=== PATIENT | male | born 1950 | race Caucasian/White ===

== ENCOUNTER → 2016-10-03 | Outpatient (CLI) | payer MEDICARE, OTHER ==
[~2016-10-03] MED LIST: REGADENOSON INJ 0.4 MG/5 ML DISP.SYRIN IV ONE
--- NOTE | 2016-10-03 18:47 | DRAGON STRESS TEST REPORT ---
INTRAVENOUS LEXISCAN CARDIOLITE STRESS TEST USING SINGLE PHOTON EMMISION COMPUTERIZED TOMOGRAPHIC. DATE OF PROCEDURE: 10/03/2016 INDICATION : Chest pain CARDIAC RISK FACTORS: Hypertension, dyslipidemia, history of coronary artery disease with stent placement. RESTING EKG: Sinus rhythm with frequent PVC, downsloping ST segment depression with conversion lateral chest lead possible LVH STRESS EKG: No significant changes noted with LexiScan bolus REASON FOR TERMINATION: Protocol. PROCEDURE REPORT: Baseline heart rate 49 beats per minute with blood pressure of 139/93. Patient had no significant complaints. Heart rate at 2 minutes post bolus 76 with a blood pressure of 138/93. 3 minutes post bolus heart rate 79 with blood pressure of 139/90. No significant EKG changes were noted. Patient had no significant complaints during the procedure or postprocedure. CONCLUSIONS: Normal EKG and hemodynamic response to IV LexiScan. NUCLEAR DATA: At rest the patient was given 11.43 millicuries of technetium 99 sestamibi injected intravenously. As per protocol rest gated SPECT images were obtained. Subsequently the patient was given intravenous LexiScan at a dose of 0.4 mg in 5 mL intravenously, followed by flush with normal saline. Subsequently the stress dose of 33.9 millicuries of technetium 99 sestamibi was injected intravenously. As per protocol stress gated images were obtained. NUCLEAR INTERPRETATION: Both raw and processed data were used for interpretation. Visual, qualitative, computer-generated quantitative data was used. There was good myocardial uptake of technetium compound. Motion artifact and soft tissue attenuations were noted. Increased visceral uptake was noted. No definitive areas of transient perfusion defect noted. No definitive areas of fixed perfusion defect or scars noted. EKG gated imaging showed LV EF at 25 %, rest and stress gated EF similar visually with diffuse hypokinesia and inferior wall akinesia. T. I D. ratio was 1.05. Lung heart ratio noted to be within normal limits 0.35. No significant extracardiac and abnormal radiotracer activities were noted. RV free wall uptake was noted to be WNL. IMPRESSION: Also refer to comments under nuclear interpretation. Also test results needs to be interpreted in the context of pretest probability. 1. There is no definitive scintigraphic evidence of LexiScan induced myocardial ischemia. 2. There is scintigraphic evidence of myocardial infarction/scar involving the inferior wall. 3. EKG gated imaging shows left ejection fraction of approximately 25 % with severe diffuse hypokinesia and inferior wall akinesia. 4. Clinical correlation requested as occasionally single vessel disease or balanced ischemia could be missed. In approximately 10% of the cases Lexiscan may not cause adequate vasodilatory stress. RECOMMENDATIONS: Aggressive risk factor modification, medical therapy. Clinical correlation with echocardiogram derived ejection fraction. Inability to exercise by itself can lead to increased cardiovascular event risks. Consider cardiology consultation if clinically indicated. I AM AVAILABLE FOR CARDIOLOGY CONSULTATION AND FOLLOWUP IF REQUESTED BY PMD Crystal Sousa M.D., [employer] Manager machine builder, Board certified in cardiovascular diseases, Nuclear cardiology, Echocardiography Cardiac CT and cardiac MRI Ph. [phone] AZUCENAD
== END ==
LOC: RAD 07:12
PROVIDERS: ATTEND Nurse Practitioner Acute Care
DX: R07.89 Other chest pain (principal); I25.10 Atherosclerotic heart disease of native coronary artery without angina pectoris
CPT/HCPCS: 93017; 78452; A9500; J2785; Q9969

== ENCOUNTER → 2016-10-10 | Outpatient (CLI) | payer MEDICARE, OTHER ==
[2016-10-10 11:52] LABS: HEMATOCRIT 51.7 % (37.9-51.0); HEMOGLOBIN 16.8 g/dL (13.5-17.0); HGB HCT DIFFERENCE -1.3; MEAN CORPUSCULAR HEMOGLOBIN 31.2 pg (27.0-33.4); MEAN CORPUSCULAR HGB CONC 32.5 g/dL (32.0-36.0); MEAN CORPUSCULAR VOLUME 96 fl (80-97); RED BLOOD COUNT 5.39 10^6/uL (4.35-5.55); RED CELL DISTRIBUTION WIDTH 14.3 % (11.5-14.0); WHITE BLOOD COUNT 6.5 10^3/uL (4.0-10.5)
[2016-10-10 12:17] LABS: ALBUMIN 4.3 g/dL (3.5-5.0); ANION GAP 13 (5-19); BLOOD UREA NITROGEN 25 mg/dL (7-20); CALCIUM 9.4 mg/dL (8.4-10.2); CARBON DIOXIDE 27 mmol/L (22-30); CHLORIDE 103 mmol/L (98-107); CREATININE RESULT 1.83 mg/dL (0.52-1.25); GLUCOSE 83 mg/dL (75-110); PHOSPHORUS 4.1 mg/dL (2.5-4.5); POTASSIUM 4.5 mmol/L (3.6-5.0); SODIUM 142.9 mmol/L (137-145)
[2016-10-11 08:45] LABS: BASOPHILS % (MANUAL) 0 % (0-2); EOSINOPHILS % (MANUAL) 1 % (0-6); LYMPHOCYTES % (MANUAL) 15 % (13-45); TOTAL CELLS COUNTED 100
[2016-10-11 08:46] LABS: ANISOCYTOSIS SLIGHT; BURR CELLS 1+; OVALOCYTES SLIGHT; POIKILOCYTOSIS 1+
== END ==
LOC: OD 11:06
PROVIDERS: ATTEND Nurse Practitioner Acute Care
DX: R07.89 Other chest pain (principal)
CPT/HCPCS: 36415; 80069; 85025; 85027

== ENCOUNTER 2017-06-20 12:39 | Emergency (ER) | payer MEDICARE, OTHER ==
--- NOTE | 2017-06-20 12:59 | ER Document Report ---
ED Cardiac - General Stated Complaint: CHEST PAIN Time Seen by Provider: 06/20/17 12:50 Mode of Arrival: Ambulatory Information source: Patient TRAVEL OUTSIDE OF THE [place] IN LAST 30 DAYS: No - HPI Patient complains to provider of: Chest pain, Palpitations, Shortness of breath Was the onset of pain: Sudden Is the pain a: New problem Chest pain location: Substernal Quality of pain: Achy, Pressure Severity now: Severe Severity at worst: Severe Chest pain precipitating factors: At Rest Cardiac risk factors: Hx [place] Positive cardiac history: Yes Associated symptoms: Diaphoresis, Shortness of breath Exacerbated by: Denies Relieved by: Nothing Notes: Patient is a 66-year-old male presenting to the emergency room complaining of chest pain and pressure that started shortly before arriving in the emergency room and is associated with shortness of breath and diaphoresis as well as rapid heart rate, he has a history of coronary artery disease with prior stents , AICD that was placed in January of this year, follows up with cardiology at [facility] - Related Data Allergies/Adverse Reactions: No Known Allergies Allergy (Verified 03/04/14 07:34) Past Medical History - General Information source: Patient - Social History Smoking Status: Unknown if Ever Smoked Family History: CAD, Other - No one has pulmonary emboli or other clotting disorder. - Past Medical History Cardiac Medical History: Reports: Hx Coronary Artery Disease, Hx DVT - on warfarin, has checked monthly, no change in meds, Hx Heart Attack - X2., Hx Hypercholesterolemia, Hx Hypertension, Hx Pulmonary Embolism Denies: Hx Atrial Fibrillation, Hx Congestive Heart Failure Pulmonary Medical History: Denies: Hx Tuberculosis Neurological Medical History: Denies: Hx Cerebrovascular Accident Endocrine Medical History: Denies: Hx Diabetes Mellitus Type 1, Hx Diabetes Mellitus Type 2 Renal/ Medical History: Reports: Hx Renal Insufficiency. Denies: Hx Kidney Stones GI Medical History: Reports: Hx Diverticulitis - Recent five-day hospitalization. Has yet to recover his energy level Musculoskeltal Medical History: Reports Hx Arthritis Psychiatric Medical History: Reports: Hx Depression - recent loss of daughter Past Surgical History: Reports: Hx Cardiac Surgery - stent x2, Hx Coronary Stent - Immunizations Immunizations up to date: Yes Hx Diphtheria, Pertussis, Tetanus Vaccination: Yes Review of Systems - Review of Systems Constitutional: Diaphoresis EENT: No symptoms reported Cardiovascular: See HPI Respiratory: Short of breath Gastrointestinal: No symptoms reported Genitourinary: No symptoms reported Male Genitourinary: No symptoms reported Musculoskeletal: No symptoms reported Skin: No symptoms reported Hematologic/Lymphatic: No symptoms reported Neurological/Psychological: No symptoms reported -: Yes All other systems reviewed and negative Physical Exam - Vital signs Vitals: Resp 20 06/20/17 12:55 Interpretation: Tachycardic - General In distress: Moderate - HEENT Head: Normocephalic, Atraumatic Eyes: Normal Conjunctiva: Normal Extraocular movements intact: Yes Eyelashes: Normal Pupils: PERRL - Respiratory Respiratory status: No respiratory distress Chest status: Nontender Breath sounds: Normal Chest palpation: Normal - Cardiovascular Rhythm: Regular, Tachycardia Murmur: No Notes: AICD/PPM present in left anterior chest wall - Abdominal Inspection: Normal Distension: No distension Bowel sounds: Normal Tenderness: Nontender Organomegaly: No organomegaly - Back Back: Normal, Nontender - Extremities General upper extremity: Normal inspection General lower extremity: Normal inspection - Neurological Neuro grossly intact: Yes Cognition: Normal Orientation: AAOx4 Ingram Coma Scale Eye Opening: Spontaneous Arnav Coma Scale Verbal: Oriented Arnav Coma Scale Motor: Obeys Commands Arnav Coma Scale Total: 15 - Skin Skin Temperature: Warm Skin Moisture: Diaphoretic Skin Color: Normal Course - Re-evaluation Re-evalutation: 06/20/17 14:02 Patient presenting to the emergency with chest pain starting shortly before arrival, EKG shows wide complex tachycardia at a rate of 185 consistent with V. tach, he is awake and alert with pulses, petrol tanker driver was called to the emergency room who recommended giving 150 of amiodarone, and prepared to cardiovert, shortly after receiving the amiodarone patient did convert to a normal sinus rhythm, repeat EKG shows what appears to be an inferior wall STEMI , petrol tanker driver confirms this at bedside and recommends that patient be transferred to tertiary care center for cardiac catheterization where interventional cardiology is available, patient has previously been seen and treated at [facility], so a call was placed to the STEMI hotline there and patient was discussed with the ER physician who agrees to accept for transfer 06/20/17 14:11 Patient currently being loaded onto stretcher with the flight crew team to transport to [facility] for further care, he is awake and alert, no complaints at present time, vital signs are stable, patient is stable for transport - Vital Signs Vital signs: Temp Pulse Resp BP Pulse Ox 10 L 141/104 H 100 06/20/17 14:01 06/20/17 14:01 06/20/17 14:01 - Laboratory Result Diagrams: 06/20/17 13:00 06/20/17 13:00 Laboratory results interpreted by me: 06/20/17 06/20/17 06/20/17 13:00 13:00 13:00 RDW 14.4 H Plt Count 144 L PT 16.8 H Chloride 110 H BUN 23 H Creatinine 2.01 H Est GFR ( Amer) 40 L Est GFR (Non-Af Amer) 33 L Direct Bilirubin 0.6 H Creatine Kinase 54 L Total Protein 6.2 L Albumin 3.4 L - Diagnostic Test Radiology reviewed: Image reviewed, Reports reviewed - EKG Interpretation by Me Rate: Tachycardia Additional EKG results interpreted by me: 06/20/17 14:04 Initial EKG consistent with ventricular tachycardia with a wide-complex tachycardia at a rate of 185 06/20/17 15:34 Repeat EKG after chemical cardioversion consistent with inferior wall [place], confirmed with on-call petrol tanker driver, Dr. Sousa - Consults Dr Sousa Time consulted: 12:59 Reason for consultation: 06/20/17 12:59 wide complex tachycardia Consulted provider: will come to ER Procedures - Additional Procedures Cardioversion/Defib Time performed: 13:04 Additional Procedures: Cardioversion/defib - IV Amiodarone chemical cardioversion performed 1304 with success Critical Care Note - Critical Care Note Total time excluding time spent on procedures (mins): 90 Comments: Patient arrived to the emergency room with a wide-complex tachycardia consistent with ventricular tachycardia, requiring close monitoring, EKG after IV amiodarone reveals inferior wall ST elevation [place], requiring transport to tertiary care center for cardiac catheterization Discharge - Discharge Clinical Impression: STEMI (ST elevation myocardial infarction) Qualifiers: Involved coronary artery: right coronary artery Qualified Code(s): I21.11 - ST elevation (STEMI) myocardial infarction involving right coronary artery Condition: Serious Disposition: [facility] Referrals: RADHA CAMERON MD [Primary Care Provider] - Follow up as needed
[2017-06-20] MEDS ORDERED: PROPOFOL 100 ML IV ONE (13:06)
[2017-06-20] MEDS ORDERED: AMIODARONE HCL INJ 150 MG/3 ML VIAL IV ONE ×4 (13:06→13:13)
[2017-06-20] MEDS ORDERED: MORPHINE SULFATE 10 MG/ML INJ IV ONE (13:15)
[2017-06-20] MEDS ORDERED: NORMAL SALINE 1000 ML 1,000 ML IV PRN (13:15)
[2017-06-20] MEDS ORDERED: ASPIRIN 81 MG TABLET, CHEWABLE PO ONE (13:15)
[2017-06-20] MEDS ORDERED: ENOXAPARIN SODIUM INJ 30 MG/0.3 ML DISP.SYRIN IV ONE (13:15)
[2017-06-20] MEDS ORDERED: CLOPIDOGREL BISULFATE 300 MG TABLET PO ONE (13:15)
[2017-06-20] MEDS ORDERED: TENECTEPLASE INJ 50 MG KIT IV ONE ×3 (13:15→20:18)
[2017-06-20 13:18] LABS: ABSOLUTE BASOPHILS # (AUTO) 0.1 10^3/uL (0.0-0.2); ABSOLUTE EOSINOPHILS # (AUTO) 0.2 10^3/uL (0.0-0.6); ABSOLUTE MONOCYTES (AUTO) 0.5 10^3/uL (0.1-1.4); ABSOLUTE NEUT (AUTO) 3.2 10^3/uL (1.7-8.2); EOSINOPHILS % (AUTO) 3.4 % (0-6); HEMATOCRIT 47.1 % (37.9-51.0); HEMOGLOBIN 16.1 g/dL (13.5-17.0); HGB HCT DIFFERENCE 1.2; LYMPHOCYTES % (AUTO) 33.1 % (13-45); MEAN CORPUSCULAR HEMOGLOBIN 33.1 pg (27.0-33.4); MEAN CORPUSCULAR HGB CONC 34.2 g/dL (32.0-36.0); MEAN CORPUSCULAR VOLUME 97 fl (80-97); MONOCYTES % (AUTO) 9.1 % (3-13); RED BLOOD COUNT 4.87 10^6/uL (4.35-5.55); RED CELL DISTRIBUTION WIDTH 14.4 % (11.5-14.0); SEGMENTED NEUTROPHILS % (AUTO) 53.4 % (42-78)
[2017-06-20 13:26] LABS: PROTHROMBIN TIME 16.8 SEC (11.4-15.4)
[2017-06-20 13:27] LABS: PARTIAL THROMBOPLASTIN TIME 34.7 SEC (23.5-35.8)
[2017-06-20] MEDS ORDERED: ENOXAPARIN SODIUM INJ 80 MG/0.8 ML DISP.SYRIN SUBCUT ONE (13:33)
--- NOTE | 2017-06-20 13:35 | RADIOLOGY REPORT (SQ) ---
EXAM DESCRIPTION: CHEST SINGLE VIEW COMPLETED DATE/TIME: 06/20/2017 1:11 pm REASON FOR STUDY: cp COMPARISON: February 2014 EXAM PARAMETERS: NUMBER OF VIEWS: One view. TECHNIQUE: Single frontal radiographic view of the chest acquired. RADIATION DOSE: NA LIMITATIONS: None. FINDINGS: LUNGS AND PLEURA: No opacities, masses or pneumothorax. There is some blunting of the rig ht costophrenic angle and thickening of the minor fissure which may represent a small pleural effusio n. MEDIASTINUM AND HILAR STRUCTURES: No masses. Contour normal. HEART AND VASCULAR STRUCTURES: Heart normal in size. Normal vasculature. BONES: No acute findings. HARDWARE: Patient is status post median sternotomy. Multiple surgical clips are identified along the left mediastinal and cardiac border. OTHER: No other significant finding. IMPRESSION: No acute consolidations. There is some blunting of the right costophrenic angle and thi ckening of the minor fissure which may be related to a small pleural effusion. Other findings as not ed above TECHNICAL DOCUMENTATION: JOB ID: [id number]
[2017-06-20 13:44] LABS: ALANINE AMINOTRANSFERASE 22 U/L (21-72); ALBUMIN 3.4 g/dL (3.5-5.0); ALKALINE PHOSPHATASE 79 U/L (38-126); ANION GAP 12 (5-19); ASPARTATE AMINO TRANSFERASE 23 U/L (17-59); BILIRUBIN,DIRECT 0.6 mg/dL (0.0-0.4); BILIRUBIN,TOTAL 1.1 mg/dL (0.2-1.3); BLOOD UREA NITROGEN 23 mg/dL (7-20); CALCIUM 8.4 mg/dL (8.4-10.2); CARBON DIOXIDE 22 mmol/L (22-30); CHLORIDE 110 mmol/L (98-107); CREATINE KINASE 54 U/L (55-170); CREATININE RESULT 2.01 mg/dL (0.52-1.25); GLUCOSE 84 mg/dL (75-110); POTASSIUM 3.6 mmol/L (3.6-5.0); SODIUM 143.6 mmol/L (137-145); TOTAL PROTEIN 6.2 g/dL (6.3-8.2)
[2017-06-20 13:53] LABS: CREATINE KINASE MB 0.79 ng/mL (<4.55)
[2017-06-20 14:00] LABS: TROPONIN I 0.037 ng/mL
--- NOTE | 2017-06-20 14:37 | RADIOLOGY REPORT (SQ) ---
EXAM DESCRIPTION: CHEST SINGLE VIEW COMPLETED DATE/TIME: 06/20/2017 1:57 pm REASON FOR STUDY: CP COMPARISON: 03/07/2014 EXAM PARAMETERS: NUMBER OF VIEWS: One view. TECHNIQUE: Single frontal radiographic view of the chest acquired. RADIATION DOSE: NA LIMITATIONS: None. FINDINGS: LUNGS AND PLEURA: No opacities, masses or pneumothorax. No pleural effusion. MEDIASTINUM AND HILAR STRUCTURES: No masses. Contour normal. HEART AND VASCULAR STRUCTURES: Heart normal in size. Normal vasculature. BONES: No acute findings. HARDWARE: Pacemaker/defibrillator. OTHER: No other significant finding. IMPRESSION: NO ACUTE RADIOGRAPHIC FINDING IN THE CHEST. TECHNICAL DOCUMENTATION: JOB ID: [id number]
[2017-06-20 14:48] VITALS: BP 141/104
--- NOTE | 2017-06-20 15:02 | PDOC CONSULTATION ---
Consultation Consult Date: 06/20/17 Attending physician:: TAMMY SUBRAMANIAN Consult reason:: V Tach History of Present Illness Admission Date/PCP: RADHA CAMERON MD Patient complains of: CP, SOB and Dizziness History of Present Illness: BRIANDA MOORE is a 66 year old male presenting to the emergency room complaining of chest pain and pressure that started shortly before arriving in the emergency room and is associated with shortness of breath and diaphoresis as well as rapid heart rate, he has a history of coronary artery disease with prior stents, AICD that was placed in January of this year, follows up with cardiology at [facility]. I was called by ER MD, because of wide complex tachycardia, sustained. It seems patient internal defibrillator was not working properly to ER MD. Patient noted to be in V. TACH at rate of 170-180 bpm. External defib patches applied in proper position, making sure of appropriate distance from internal defbrillator. But just before external defib could be used pts heart rate was noted to exceed 200 bpm and pace termination of rapid V. TACH occurred via internal defibrillator. Orders were given to nurse for stat ekg and amiodarone bolus and drip protocol. Post pace termination EKG showed ST elevation inferior lead and reciprocal changes of acute [place]. ER physician activated Acute tranfer protocol and gave thrombolytics. Patient seen again after about an hour and was noted to be stable and free of CP and significant arrhythmias. Past Medical History Cardiac Medical History: Reports: Coronary Artery Disease, DVT - on warfarin, has checked monthly, no change in meds, Myocardial Infarction - X2., Hyperlipidema, Hypertension, Pulmonary Embolism Denies: Atrial Fibrillation, Congestive Heart Failure Pulmonary Medical History: Denies: Tuberculosis Endocrine Medical History: Denies: Diabetes Mellitus Type 1, Diabetes Mellitus Type 2 GI Medical History: Reports: Diverticulitis - Recent five-day hospitalization. Has yet to recover his energy level Musculoskeltal Medical History: Reports: Arthritis Psychiatric Medical History: Reports: Depression - recent loss of daughter Past Surgical History Past Surgical History: Reports: Cholecystectomy - pacemaker/defib, Coronary Stent, Internal Defibrillator Social History Information Source: Patient Smoking Status: Unknown if Ever Smoked Frequency of Alcohol Use: None Hx Recreational Drug Use: No Hx Prescription Drug Abuse: No Family History Family History: CAD, Other - No one has pulmonary emboli or other clotting disorder. Parental Family History Reviewed: Yes Children Family History Reviewed: Yes Sibling(s) Family History Reviewed.: Yes Medication/Allergy Home Medications: Carvedilol [Coreg 3.125 mg Tablet] 3.125 mg PO BID 05/27/13 Ezetimibe [Zetia 10 mg Tablet] 10 mg PO QHS 05/27/13 Lisinopril [Prinivil 40 mg Tablet] 40 mg PO DAILY 05/27/13 Amlodipine Besylate [Norvasc 10 mg Tablet] 10 mg PO DAILY 03/04/14 Esomeprazole Magnesium [Nexium] 40 mg PO DAILY 03/04/14 Rivaroxaban [Xarelto 10 mg Tablet] 20 mg PO QHS 03/04/14 Ciprofloxacin HCl [Cipro 500 mg Tablet] 500 mg PO BID #10 tablet 03/08/14 Escitalopram Oxalate [Lexapro 10 mg Tablet] 10 mg PO DAILY #30 tablet 03/08/14 Metronidazole [Flagyl 250 mg Tablet] 250 mg PO Q8 #15 tablet 03/08/14 Ondansetron [Zofran Odt 4 mg Tablet] 1 - 2 tab PO Q4HP PRN #10 tab.rapdis Allergies/Adverse Reactions: No Known Allergies Allergy (Verified 03/04/14 07:34) Review of Systems Constitutional: ABSENT: chills, fever(s), headache(s), weight gain, weight loss Eyes: ABSENT: visual disturbances Ears: ABSENT: hearing changes Nose, Mouth, and Throat: ABSENT: as per HPI, headache(s), mouth pain, sore throat, vertigo, other Cardiovascular: PRESENT: as per HPI, chest pain, dyspnea on exertion, palpitations Respiratory: PRESENT: dyspnea. ABSENT: cough, hemoptysis Gastrointestinal: PRESENT: heartburn. ABSENT: abdominal pain, constipation, diarrhea, hematemesis, hematochezia, nausea, vomiting Genitourinary: ABSENT: dysuria, hematuria Musculoskeletal: ABSENT: joint swelling, muscle weakness Integumentary: ABSENT: as per HPI, diaphoresis, erythema, lesions, pruritus, rash, wounds, other Neurological: PRESENT: syncope. ABSENT: abnormal gait, abnormal speech, confusion, dizziness, focal weakness Psychiatric: ABSENT: anxiety, depression, homidical ideation, suicidal ideation Endocrine: ABSENT: cold intolerance, heat intolerance, polydipsia, polyuria Hematologic/Lymphatic: ABSENT: easy bleeding, easy bruising Physical Exam Vital Signs: Temp Pulse Resp BP Pulse Ox 10 L 141/104 H 100 06/20/17 14:01 06/20/17 14:01 06/20/17 14:01 General appearance: PRESENT: no acute distress, well-developed, well-nourished Head exam: PRESENT: atraumatic, normocephalic Eye exam: PRESENT: conjunctiva pink, EOMI, PERRLA. ABSENT: scleral icterus Ear exam: PRESENT: normal external ear exam Mouth exam: PRESENT: moist, tongue midline Neck exam: ABSENT: carotid bruit, JVD, lymphadenopathy, thyromegaly Respiratory exam: PRESENT: clear to auscultation cecille. ABSENT: rales, rhonchi, wheezes Cardiovascular exam: PRESENT: RRR, +S1, +S2, systolic murmur - 1-2/6 CHANDLER aotic area. ABSENT: diastolic murmur, rubs Pulses: PRESENT: normal dorsalis pedis pul Vascular exam: PRESENT: normal capillary refill GI/Abdominal exam: PRESENT: normal bowel sounds, soft. ABSENT: distended, guarding, mass, organolmegaly, rebound, tenderness Rectal exam: PRESENT: deferred Extremities exam: PRESENT: full ROM. ABSENT: calf tenderness, clubbing, pedal edema Musculoskeletal exam: PRESENT: normal inspection. ABSENT: deformity Neurological exam: PRESENT: alert, awake, oriented to person, oriented to place , oriented to time, oriented to situation, CN II-XII grossly intact. ABSENT: motor sensory deficit Psychiatric exam: PRESENT: appropriate affect, normal mood. ABSENT: homicidal ideation, suicidal ideation Skin exam: PRESENT: dry, intact, warm. ABSENT: cyanosis, rash Results Laboratory Results: 06/20/17 13:00 06/20/17 13:00 06/20/17 06/20/17 13:00 13:00 WBC 6.0 RBC 4.87 Hgb 16.1 Hct 47.1 MCV 97 MCH 33.1 MCHC 34.2 RDW 14.4 H Plt Count 144 L Seg Neutrophils % 53.4 Lymphocytes % 33.1 Monocytes % 9.1 Eosinophils % 3.4 Basophils % 1.0 Absolute Neutrophils 3.2 Absolute Lymphocytes 2.0 Absolute Monocytes 0.5 Absolute Eosinophils 0.2 Absolute Basophils 0.1 Sodium 143.6 Potassium 3.6 Chloride 110 H Carbon Dioxide 22 Anion Gap 12 BUN 23 H Creatinine 2.01 H Est GFR ( Amer) 40 L Est GFR (Non-Af Amer) 33 L Glucose 84 Calcium 8.4 Total Bilirubin 1.1 AST 23 ALT 22 Alkaline Phosphatase 79 Total Protein 6.2 L Albumin 3.4 L 06/20/17 06/20/17 13:00 13:00 Creatine Kinase 54 L CK-MB (CK-2) 0.79 Troponin I 0.037 EKG Comments: Multiple reviewed. V.TACH and subsequently acute inferior [place] changes with subsequent improvement. Impressions: Chest X-Ray 06/20/17 12:51 IMPRESSION: No acute consolidations. There is some blunting of the right costophrenic angle and thickening of the minor fissure which may be related to a small pleural effusion. Other findings as noted above Assessment & Plan - Diagnosis (1) Ventricular tachycardia Is this a current diagnosis for this admission?: Yes Plan: IV Amiodarone bolus and drip protocol. (2) STEMI (ST elevation myocardial infarction) Qualifiers: Involved coronary artery: right coronary artery Qualified Code(s): I21.11 - ST elevation (STEMI) myocardial infarction involving right coronary artery Is this a current diagnosis for this admission?: Yes Plan: IV thrombolytics, asa, heparin, beta blockers, ACEI/ ARB later on. (3) CAD (coronary artery disease) Qualifiers: Coronary Disease-Associated Artery/Lesion type: [place] artery Associated angina: with other forms of angina Is this a current diagnosis for this admission?: Yes Plan: refer for cardiac cath/PCI (4) HTN (hypertension) Qualifiers: Hypertension type: essential hypertension Qualified Code(s): I10 - Essential (primary) hypertension Is this a current diagnosis for this admission?: Yes Plan: stable - Notes Notes: See HPI for details. I was asked by the emergency room physician to see this patient because of wide-complex tachycardia which was felt to be ventricular tachycardia. Rest of the details are in HPI. Patient was subsequently accepted for transfer to tertiary care for coronary intervention and appropriate electrophysiological consultation.. - Time Time Spent: 30 to 50 Minutes - CODE STATUS was discussed, patient remains full code. Surrogate decision-maker patient's son in the room. Multiple medical problems were addressed. More than 50% of the time spent coordinating care, discussing management plans with involved caregivers. Management plans discussed with involved personnels. Medical decision making was of moderate to high complexity, patient's has multiple comorbidities. Medications reviewed and adjusted accordingly: Yes
[2017-06-20] MEDS ORDERED: DEXTROSE 5%-WATER 500 ML with AMIODARONE HCL 900 MG IV PRN ×2 (15:09)
[2017-06-20] MEDS ORDERED: ENOXAPARIN SODIUM INJ 30 MG/0.3 ML DISP.SYRIN ONE (20:18)
[2017-06-20] MEDS ORDERED: ASPIRIN 81 MG TABLET, CHEWABLE ONE (20:18)
[2017-06-20] MEDS ORDERED: CLOPIDOGREL BISULFATE 300 MG TABLET ONE (20:18)
--- NOTE | 2017-06-20 22:58 | EKG REPORT ---
SEVERITY:- ABNORMAL ECG - A-V DUAL-PACED COMPLEXES W/ SOME INHIBITION ALSO SINUS WITH EVOLVING CHANGES OF INFERIOR IN : Confirmed by: Crystal Sousa 20-Jun-2017 22:57:55
--- NOTE | 2017-06-20 22:59 | EKG REPORT ---
SEVERITY:- ABNORMAL ECG - EXTREME TACHYCARDIA WITH WIDE COMPLEX, NO FURTHER RHYTHM ANALYSIS ATTEMPTED : Confirmed by: Crystal Sousa 20-Jun-2017 22:58:06
--- NOTE | 2017-06-20 23:00 | EKG REPORT ---
SEVERITY:- ABNORMAL ECG - ATRIAL-PACED RHYTHM, VPCs ABNORMAL T, CONSIDER ISCHEMIA, INFERIOR LEADS WITH INFERIOR [place] BORDERLINE PROLONGED QT INTERVAL : Confirmed by: Crystal Sousa 20-Jun-2017 22:59:20
--- NOTE | 2017-06-20 23:01 | EKG REPORT ---
SEVERITY:- ABNORMAL ECG - VENTRICULAR-PACED COMPLEXES LEFT BUNDLE BRANCH BLOCK VPCs INFERIOR INFARCT AGE INDETERMINATE : Confirmed by: Crystal Sousa 20-Jun-2017 23:00:27
--- NOTE | 2017-06-20 23:02 | EKG REPORT ---
SEVERITY:- ABNORMAL ECG - SINUS RHYTHM MULTIPLE VENTRICULAR PREMATURE COMPLEXES PROBABLE LEFT ATRIAL ABNORMALITY BORDERLINE ST DEPRESSION, ANTEROLATERAL LEADS ABNORMAL T, CONSIDER ISCHEMIA, INFERIOR INFARCT ACUTE WITH SOME RECIPROCAL CHANGES BORDERLINE PROLONGED QT INTERVAL : Confirmed by: Crystal Sousa 20-Jun-2017 23:01:35
== END 2017-06-20 14:15 | disposition short-term general hospital (02) ==
LOC: ER 12:39
DX: I21.11 ST elevation (STEMI) myocardial infarction involving right coronary artery (principal); I25.10 Atherosclerotic heart disease of native coronary artery without angina pectoris; I25.2 Old myocardial infarction; I10 Essential (primary) hypertension; R07.89 Other chest pain; R06.02 Shortness of breath; R61 Generalized hyperhidrosis; R00.0 Tachycardia, unspecified; Z95.810 Presence of automatic (implantable) cardiac defibrillator; Z95.5 Presence of coronary angioplasty implant and graft; Z86.711 Personal history of pulmonary embolism; Z86.718 Personal history of other venous thrombosis and embolism; Z82.49 Family history of ischemic heart disease and other diseases of the circulatory system
CPT/HCPCS: 93005 ×2; 99291; 99292; 96372; 96375; 96365; 36415; 82553; 82550; 85025; 85610; 85730; 80053; 84484; 71010; 93010; J3101; A9270 ×2; J2270; J1650 ×2; J7060; J0282; J3490

== ENCOUNTER 2017-07-06 01:56 | Emergency (ER) | payer OTHER, MEDICARE ==
[2017-07-06 02:48] LABS: ABSOLUTE BASOPHILS # (AUTO) 0.1 10^3/uL (0.0-0.2); ABSOLUTE EOSINOPHILS # (AUTO) 0.2 10^3/uL (0.0-0.6); ABSOLUTE MONOCYTES (AUTO) 0.6 10^3/uL (0.1-1.4); ABSOLUTE NEUT (AUTO) 6.5 10^3/uL (1.7-8.2); BASOPHILS % (AUTO) 1.5 % (0-2); EOSINOPHILS % (AUTO) 2.7 % (0-6); HEMATOCRIT 49.1 % (37.9-51.0); HEMOGLOBIN 16.4 g/dL (13.5-17.0); HGB HCT DIFFERENCE 0.1; LYMPHOCYTES % (AUTO) 11.8 % (13-45); MEAN CORPUSCULAR HEMOGLOBIN 32.8 pg (27.0-33.4); MEAN CORPUSCULAR HGB CONC 33.5 g/dL (32.0-36.0); MEAN CORPUSCULAR VOLUME 98 fl (80-97); MONOCYTES % (AUTO) 7.4 % (3-13); RED CELL DISTRIBUTION WIDTH 15.1 % (11.5-14.0); SEGMENTED NEUTROPHILS % (AUTO) 76.6 % (42-78); WHITE BLOOD COUNT 8.5 10^3/uL (4.0-10.5)
[2017-07-06 02:58] LABS: ANION GAP 11 (5-19); BLOOD UREA NITROGEN 45 mg/dL (7-20); CALCIUM 9.4 mg/dL (8.4-10.2); CARBON DIOXIDE 25 mmol/L (22-30); CHLORIDE 105 mmol/L (98-107); CREATININE RESULT 2.72 mg/dL (0.52-1.25); GLUCOSE 91 mg/dL (75-110); POTASSIUM 5.3 mmol/L (3.6-5.0); SODIUM 140.9 mmol/L (137-145)
--- NOTE | 2017-07-06 03:57 | ER Document Report ---
ED General - General Chief Complaint: Chest Pain Stated Complaint: SHORTNESS OF BREATH Time Seen by Provider: 07/06/17 02:21 Notes: Patient is a 66-year-old male with a past medical history of CHF, history of recurrent ventricular tachycardia, history of an implanted to for later and pacemaker, recent cardiac catheterization on June 23 at [place] without any intervention who presents after an episode in which he felt like he was about to have a shock delivered by his internal defibrillator. Patient states that ever since having the most recent episode in which he was transferred from this hospital [facility] and then to [place], he thinks about his health and medical conditions "14/04". Patient states that every night he is completely unable to sleep due to anxiety and a feeling like he cannot breathe. Nothing is new or different about the episode tonight. He denied any chest pain during this episode. He denies any symptoms at time of my assessment. Nothing improves or worsens his symptoms. He has not seen his primary care doctor regarding his ongoing anxiety TRAVEL OUTSIDE OF THE [place] IN LAST 30 DAYS: No - Related Data Allergies/Adverse Reactions: No Known Allergies Allergy (Verified 03/04/14 07:34) Past Medical History - General Information source: Patient, Relative - Social History Smoking Status: Never Smoker Frequency of alcohol use: None Drug Abuse: None Lives with: Family Family History: CAD, Other - No one has pulmonary emboli or other clotting disorder. - Past Medical History Cardiac Medical History: Reports: Hx Coronary Artery Disease, Hx DVT - on warfarin, has checked monthly, no change in meds, Hx Heart Attack - X2., Hx Hypercholesterolemia, Hx Hypertension, Hx Pulmonary Embolism Denies: Hx Atrial Fibrillation, Hx Congestive Heart Failure Pulmonary Medical History: Denies: Hx Tuberculosis Neurological Medical History: Denies: Hx Cerebrovascular Accident Endocrine Medical History: Denies: Hx Diabetes Mellitus Type 1, Hx Diabetes Mellitus Type 2 Renal/ Medical History: Reports: Hx Renal Insufficiency. Denies: Hx Kidney Stones GI Medical History: Reports: Hx Diverticulitis - Recent five-day hospitalization. Has yet to recover his energy level Musculoskeltal Medical History: Reports Hx Arthritis Psychiatric Medical History: Reports: Hx Depression - recent loss of daughter Past Surgical History: Reports: Hx Cardiac Surgery - stent x2, Hx Cholecystectomy - pacemaker/defib, Hx Coronary Stent, Hx Internal Defibrillator - Immunizations Immunizations up to date: Yes Hx Diphtheria, Pertussis, Tetanus Vaccination: Yes Review of Systems - Review of Systems Notes: Constitutional: Negative for fever. HENT: Negative for sore throat. Eyes: Negative for visual changes. Cardiovascular: Negative for chest pain. Respiratory: Negative for shortness of breath. Gastrointestinal: Negative for abdominal pain, vomiting or diarrhea. Genitourinary: Negative for dysuria. Musculoskeletal: Negative for back pain. Skin: Negative for rash. Neurological: Negative for headaches, weakness or numbness. 10 point ROS negative except as marked above and in HPI. Physical Exam - Vital signs Vitals: Resp BP Pulse Ox 14 111/91 H 95 07/06/17 03:01 07/06/17 03:01 07/06/17 03:01 Interpretation: Normal Notes: PHYSICAL EXAMINATION: GENERAL: Well-appearing, well-nourished and in no acute distress. HEAD: Atraumatic, normocephalic. EYES: Pupils equal round and reactive to light, extraocular movements intact, sclera anicteric, conjunctiva are normal. ENT: nares patent, oropharynx clear without exudates. Moist mucous membranes. NECK: Normal range of motion, supple without lymphadenopathy LUNGS: Breath sounds clear to auscultation bilaterally and equal. No wheezes rales or rhonchi. HEART: Regular rate and rhythm without murmurs ABDOMEN: Soft, nontender, normoactive bowel sounds. No guarding, no rebound. No masses appreciated. EXTREMITIES: Normal range of motion, no pitting or edema. No cyanosis. NEUROLOGICAL: No focal neurological deficits. Moves all extremities spontaneously and on command. PSYCH: Somewhat anxious SKIN: Warm, Dry, normal turgor, well-healed incisional scar over the left anterior chest over pacer site Course - Re-evaluation Re-evalutation: 07/06/17 03:55 Patient presents with prolonged anxiety, constant worry about possible recurrent defibrillation, and panic. I did spend over 45 minutes at the bedside with the patient and his family including 20 minutes one-on-one with the patient. He has relayed a extensive deterioration of his quality of life ever since being hospitalized at [place] following his transfer from this hospital for ventricular tachycardia and ACS. Patient states that he does not feel he can do anything at this point due to concerns about going back into ventricular tachycardia and receiving an additional defibrillation. He is not here with chest pain or shortness of breath, troponin is normal. Laboratories do show chronic kidney disease the patient reports that the creatinine today is actually less than it was at time of discharge from [place] when it was 3.8. EKG shows a paced rhythm. I do not believe there is any indication for repeat troponins or hospitalizations as patient is clear that he did not have chest pain or shortness of breath tonight only feeling of panic that he was about to again be defibrillated. After review of patient's history I have encouraged him to follow-up with palliative care for management of his symptoms as well as seek counseling. I will also start the patient on fluoxetine 20 mg daily as well as trazodone at night as he states he has been completely unable to sleep due to anxiety. The family is in agreement with this. The patient accepts these medications and has agreed to follow-up with palliative care and counseling. - Vital Signs Vital signs: Temp Pulse Resp BP Pulse Ox 15 146/90 H 95 07/06/17 04:01 07/06/17 04:01 07/06/17 04:01 - Laboratory Result Diagrams: 07/06/17 02:25 07/06/17 02:25 Laboratory results interpreted by me: 07/06/17 07/06/17 02:25 02:25 MCV 98 H RDW 15.1 H Lymphocytes % 11.8 L Potassium 5.3 H BUN 45 H Creatinine 2.72 H Est GFR ( Amer) 28 L Est GFR (Non-Af Amer) 23 L - Diagnostic Test Radiology reviewed: Image reviewed, Reports reviewed Radiology results interpreted by me: 07/06/17 05:33 Chest x-ray: No acute infiltrate or pneumothorax - EKG Interpretation by Me Additional EKG results interpreted by me: 07/06/17 05:34 Atrially sensed ventricular paced rhythm. Rate 60. Discharge - Discharge Clinical Impression: Anxiety about health Condition: Stable Disposition: HOME, SELF-CARE Additional Instructions: As we discussed today, please start the medications that we have prescribed today as directed. I strongly encouraged you to follow-up with palliative care or formal counseling regarding your daily concerns regarding your health. Time , medication, and stabilization of your health conditions will hopefully improve your daily quality of life. Please return to the emergency department for any additional concerns you may have. Medications: 1.) For sleep: Trazodone. You have been prescribed 100 mg tablets. Start by taking a half a tablet nightly. If this does not provide adequate sleep he may take a whole tablet 2.) For daily anxiety: Fluoxetine. You are being started on 20 mg. Take this daily. This generally takes 6-8 weeks to provide an adequate effect. Your being started on the lowest dose and often will have to go to a higher dose to achieve the appropriate affect. Prescriptions: Trazodone HCl [Desyrel] 50 - 100 mg PO QHS #60 tablet Fluoxetine HCl 20 mg PO DAILY #60 capsule
--- NOTE | 2017-07-06 04:11 | RADIOLOGY REPORT (SQ) ---
EXAM DESCRIPTION: CHEST SINGLE VIEW COMPLETED DATE/TIME: 07/06/2017 3:55 am REASON FOR STUDY: sob COMPARISON: 06/20/2017 EXAM PARAMETERS: NUMBER OF VIEWS: One view. TECHNIQUE: Single frontal radiographic view of the chest acquired. RADIATION DOSE: NA LIMITATIONS: None. FINDINGS: LUNGS AND PLEURA: No opacities, masses or pneumothorax. No pleural effusion. MEDIASTINUM AND HILAR STRUCTURES: No masses. Contour normal. HEART AND VASCULAR STRUCTURES: Heart normal in size. Normal vasculature. BONES: No acute findings. HARDWARE: Cardiac unchanged. OTHER: No other significant finding. IMPRESSION: NO ACUTE RADIOGRAPHIC FINDING IN THE CHEST. TECHNICAL DOCUMENTATION: JOB ID: [id number]
[2017-07-06] MEDS ORDERED: TRAZODONE HCL 50 MG TABLET PO ONE (04:23)
[2017-07-06 04:59] VITALS: BP 146/90
--- NOTE | 2017-07-06 07:48 | EKG REPORT ---
SEVERITY:- ABNORMAL ECG - ATRIAL-VENTRICULAR DUAL-PACED COMPLEXES IVCD, CONSIDER ATYPICAL LBBB : Confirmed by: Papi Beltran MD 06-Jul-2017 07:48:20
== END 2017-07-06 04:59 | disposition home or self-care (01) ==
LOC: ER 01:56
DX: F41.9 Anxiety disorder, unspecified (principal); I47.2 Ventricular tachycardia; I50.9 Heart failure, unspecified; R07.9 Chest pain, unspecified; R06.02 Shortness of breath
CPT/HCPCS: 36415; 71010; 80048; 84484; 85025; 93005; 93010; 99284

== ENCOUNTER 2017-10-06 14:07 | Emergency (ER) | payer MEDICARE, OTHER ==
[2017-10-06 14:28] LABS: ABSOLUTE BASOPHILS # (AUTO) 0.1 10^3/uL (0.0-0.2); ABSOLUTE EOSINOPHILS # (AUTO) 0.3 10^3/uL (0.0-0.6); ABSOLUTE LYMPHOCYTES (AUTO) 0.8 10^3/uL (0.5-4.7); ABSOLUTE MONOCYTES (AUTO) 0.7 10^3/uL (0.1-1.4); ABSOLUTE NEUT (AUTO) 3.5 10^3/uL (1.7-8.2); BASOPHILS % (AUTO) 1.2 % (0-2); EOSINOPHILS % (AUTO) 5.3 % (0-6); HEMOGLOBIN 14.4 g/dL (13.5-17.0); LYMPHOCYTES % (AUTO) 14.4 % (13-45); MEAN CORPUSCULAR HEMOGLOBIN 31.3 pg (27.0-33.4); MEAN CORPUSCULAR HGB CONC 33.5 g/dL (32.0-36.0); MEAN CORPUSCULAR VOLUME 94 fl (80-97); MONOCYTES % (AUTO) 12.6 % (3-13); PLATELET COUNT 145 10^3/uL (150-450); RED CELL DISTRIBUTION WIDTH 14.1 % (11.5-14.0); SEGMENTED NEUTROPHILS % (AUTO) 66.5 % (42-78); TOTAL CELLS COUNTED % (AUTO) 100 %; WHITE BLOOD COUNT 5.3 10^3/uL (4.0-10.5)
--- NOTE | 2017-10-06 14:35 | ER Document Report ---
ED General - General Chief Complaint: Fainting Stated Complaint: SYNCOPE Time Seen by Provider: 10/06/17 14:16 Mode of Arrival: Medic Information source: Patient, Emergency Med Personnel, [facility] Records TRAVEL OUTSIDE OF THE [place] IN LAST 30 DAYS: No - HPI Patient complains to provider of: fell off treadmill Onset: Just prior to arrival Onset/Duration: Sudden Context: 67-year-old male presents emergency department stating he fell off the treadmill. He states he was at cardiac rehab he was on the treadmill when he got dizzy. He did hit the stop and however at that point he fell off the treadmill. He is complaining of right shoulder pain only. At 181 I went back into talk to the patient and his family. Patient now states that he was walking on the treadmill he was feeling okay so he spit it up a bit as soon as he spit it up he became lightheaded than he at the stop button and the next thing he knew he passed out. Associated symptoms: None - light headedness Exacerbated by: Denies Relieved by: Denies Similar symptoms previously: No Recently seen / treated by doctor: Yes - Related Data Allergies/Adverse Reactions: No Known Allergies Allergy (Verified 03/04/14 07:34) Past Medical History - General Information source: Patient, Relative - Social History Smoking Status: Former Smoker Cigarette use (# per day): No Chew tobacco use (# tins/day): No Smoking Education Provided: No Frequency of alcohol use: None Drug Abuse: None Lives with: Family Family History: CAD, Other - No one has pulmonary emboli or other clotting disorder. - Past Medical History Cardiac Medical History: Reports: Hx Coronary Artery Disease, Hx DVT - on warfarin, has checked monthly, no change in meds, Hx Heart Attack - X2., Hx Hypercholesterolemia, Hx Hypertension, Hx Pulmonary Embolism Denies: Hx Atrial Fibrillation, Hx Congestive Heart Failure Pulmonary Medical History: Denies: Hx Tuberculosis Neurological Medical History: Denies: Hx Cerebrovascular Accident Endocrine Medical History: Denies: Hx Diabetes Mellitus Type 1, Hx Diabetes Mellitus Type 2 Renal/ Medical History: Reports: Hx Renal Insufficiency. Denies: Hx Kidney Stones Malignancy Medical History: Reports None GI Medical History: Reports: Hx Diverticulitis - Recent five-day hospitalization. Has yet to recover his energy level Musculoskeltal Medical History: Reports Hx Arthritis Psychiatric Medical History: Reports: Hx Depression - recent loss of daughter Past Surgical History: Reports: Hx Cardiac Surgery - stent x2, Hx Cholecystectomy - pacemaker/defib, Hx Coronary Stent, Hx Internal Defibrillator - Immunizations Immunizations up to date: Yes Hx Diphtheria, Pertussis, Tetanus Vaccination: Yes Review of Systems - Review of Systems Constitutional: No symptoms reported EENT: No symptoms reported Cardiovascular: Dizziness, Lightheaded Respiratory: No symptoms reported Gastrointestinal: No symptoms reported Genitourinary: No symptoms reported Male Genitourinary: No symptoms reported Musculoskeletal: No symptoms reported Skin: No symptoms reported Hematologic/Lymphatic: No symptoms reported Physical Exam - Vital signs Vitals: Resp Pulse Ox 18 97 10/06/17 14:11 10/06/17 14:11 - Notes Notes: PHYSICAL EXAMINATION: GENERAL: Patient on long board and c-collar. HEAD: Atraumatic, normocephalic. EYES: Pupils equal round and reactive to light, extraocular movements intact, sclera anicteric, conjunctiva are normal. ENT: Nares patent, oropharynx clear without exudates. Moist mucous membranes. NECK: Normal range of motion, supple without lymphadenopathy(lfull examination completed after CT of neck was negative) LUNGS: Breath sounds clear to auscultation bilaterally and equal. No wheezes rales or rhonchi. HEART: Regular rate and rhythm ABDOMEN: Soft, nontender, nondistended abdomen. No guarding, no rebound. No masses appreciated. Musculoskeletal: Normal range of motion, no pitting or edema. No cyanosis.3 cm skin tear right elbow NEUROLOGICAL: Cranial nerves grossly intact. Normal speech. Normal sensory, motor exams PSYCH: Normal mood, normal affect. SKIN: Warm, Dry, normal turgor, no rashes or lesions noted. Course - Re-evaluation Re-evalutation: 10/06/17 18:[address] Carranza [phone]. Also call placed to [facility] await call back Dr. Martinez. 10/06/17 18:22 I did speak to Dr. Martinez. States to have the pacer interrogated which I have early asked to have done. Patient will either be transferred to [facility] were placed in observation here. 10/06/17 20:[address] Carranza who stated since it was exercise-induced syncope and V. tach patient's to be transferred. 10/06/17 20:15 I did speak with [employer] did that the patient has been having multiple episodes of V. tach since August. He states he had slow V. tach on 10/01/2016 and today. He states it is approximately 140 bpm. 10/06/17 20:5 I did talk to Riaz, the CCU patternmaker helper. The pt. is accepted to [facility] under Dr. Maharaj. [facility] will coordinate transfer. Report has been filled out and given to the school psychology professor. I also asked that a copy of the [employer] printout goes with the patient. Family is aware and patient is agreeable to transfer - Vital Signs Vital signs: Temp Pulse Resp BP Pulse Ox 97.7 F 13 138/90 H 95 10/06/17 14:31 10/06/17 19:31 10/06/17 19:31 10/06/17 19:31 - Laboratory Result Diagrams: 10/06/17 14:18 10/06/17 14:18 Laboratory results interpreted by me: 10/06/17 10/06/17 10/06/17 14:18 14:18 14:18 RDW 14.1 H Plt Count 145 L PT 16.7 H Chloride 109 H BUN 35 H Creatinine 2.71 H Est GFR ( Amer) 28 L Est GFR (Non-Af Amer) 23 L AST 72 H ALT 115 H Total Protein 6.1 L Albumin 3.4 L - Diagnostic Test Radiology reviewed: Image reviewed, Reports reviewed Radiology results interpreted by me: 10/06/17 20:15 No acute findings on chest x-ray - EKG Interpretation by Id EKG shows normal: Sinus rhythm - Atrial paced rate 70 Critical Care Note - Critical Care Note Total time excluding time spent on procedures (mins): 45 Comments: 45 minutes of critical care time spent in direct contact evaluating and reevaluating the patient, treating symptoms, reviewing labs and studies and speaking with family and consultants excluding any procedures Discharge - Discharge Clinical Impression: V tach, Syncope, HTN (hypertension), Chronic renal insufficiency Condition: Stable Disposition: [facility]
[2017-10-06 14:36] LABS: INTERNATIONAL RATION (INR) 1.27; PROTHROMBIN TIME 16.7 SEC (11.4-15.4)
[2017-10-06 14:37] LABS: PARTIAL THROMBOPLASTIN TIME 32.2 SEC (23.5-35.8)
[2017-10-06 14:46] LABS: ALANINE AMINOTRANSFERASE 115 U/L (21-72); ALBUMIN 3.4 g/dL (3.5-5.0); ALKALINE PHOSPHATASE 107 U/L (38-126); ANION GAP 12 (5-19); ASPARTATE AMINO TRANSFERASE 72 U/L (17-59); BILIRUBIN,DIRECT 0.3 mg/dL (0.0-0.4); BILIRUBIN,TOTAL 0.6 mg/dL (0.2-1.3); BLOOD UREA NITROGEN 35 mg/dL (7-20); CALCIUM 9.2 mg/dL (8.4-10.2); CARBON DIOXIDE 22 mmol/L (22-30); CHLORIDE 109 mmol/L (98-107); GLUCOSE 84 mg/dL (75-110); MAGNESIUM 1.7 mg/dL (1.6-2.3); POTASSIUM 4.1 mmol/L (3.6-5.0); SODIUM 142.7 mmol/L (137-145); TOTAL PROTEIN 6.1 g/dL (6.3-8.2)
--- NOTE | 2017-10-06 15:24 | RADIOLOGY REPORT (SQ) ---
EXAM DESCRIPTION: CHEST SINGLE VIEW COMPLETED DATE/TIME: 10/06/2017 3:14 pm REASON FOR STUDY: chest pain COMPARISON: 07/06/2017 EXAM PARAMETERS: NUMBER OF VIEWS: One view. TECHNIQUE: Single frontal radiographic view of the chest acquired. RADIATION DOSE: NA LIMITATIONS: None. FINDINGS: LUNGS AND PLEURA: No new opacities, masses or pneumothorax. No pleural effusion. MEDIASTINUM AND HILAR STRUCTURES: No masses. Contour normal. HEART AND VASCULAR STRUCTURES: Heart stable in size. Normal vasculature. BONES: No acute findings. HARDWARE: Stable. OTHER: No other significant finding. IMPRESSION: NO ACUTE RADIOGRAPHIC FINDING IN THE CHEST. NO SIGNIFICANT CHANGE FROM PRIOR STUDY. TECHNICAL DOCUMENTATION: JOB ID: [id number] [employer]- All Rights Reserved
--- NOTE | 2017-10-06 15:41 | RADIOLOGY REPORT (SQ) ---
EXAM DESCRIPTION: CT HEAD WITHOUT COMPLETED DATE/TIME: 10/06/2017 3:31 pm REASON FOR STUDY: fall/head trauma COMPARISON: None. TECHNIQUE: Axial images acquired through the brain without intravenous contrast. Images reviewed wi th bone, brain and subdural windows. Images stored on PACS. All CT scanners at this facility use dose modulation, iterative reconstruction, and/or weight based d osing when appropriate to reduce radiation dose to as low as reasonably achievable (ALARA). [facility]: Dose Right [facility]: CareDose [facility]: Dose Right [facility]: Teradose 4D [facility]: [employer] RADIATION DOSE: CT Rad equipment meets quality standard of care and radiation dose reduction techniq ues were employed. CTDIvol: 61.3 mGy. DLP: 1163 mGy-cm. mGy. LIMITATIONS: None. FINDINGS: VENTRICLES: Prominent. CEREBRUM: No masses. No hemorrhage. No midline shift. Areas of low density in the white matter mos t likely due to chronic micro-vascular ischemic change. No evidence for acute infarction. CEREBELLUM: No masses. No hemorrhage. No alteration of density. No evidence for acute infarction. EXTRAAXIAL SPACES: Mild age-related involutional change. No fluid collections. No masses. ORBITS AND GLOBE: No intra- or extraconal masses. Normal contour of globe without masses. CALVARIUM: No fracture. PARANASAL SINUSES: No fluid levels. SOFT TISSUES: No mass or hematoma. OTHER: No other significant finding. IMPRESSION: No acute findings. EVIDENCE OF ACUTE STROKE: NO. TECHNICAL DOCUMENTATION: JOB ID: [id number] Quality ID # [id number]: Final reports with documentation of one or more dose reduction techniques (e.g., Au tomated exposure control, adjustment of the mA and/or kV according to patient size, use of iterative reconstruction technique) 2010 [employer]- All Rights Reserved
--- NOTE | 2017-10-06 15:43 | RADIOLOGY REPORT (SQ) ---
EXAM DESCRIPTION: CT CERVICAL SPINE WITHOUT COMPLETED DATE/TIME: 10/06/2017 3:31 pm REASON FOR STUDY: fall/head trauma COMPARISON: None. TECHNIQUE: Axial images acquired through the cervical spine without intravenous contrast. Images re viewed with lung, soft tissue and bone windows. Reconstructed coronal and sagittal MPR images review ed. Images stored on PACS. All CT scanners at this facility use dose modulation, iterative reconstruction, and/or weight based d osing when appropriate to reduce radiation dose to as low as reasonably achievable (ALARA). [facility]: Dose Right [facility]: CareDose [facility]: Dose Right [facility]: Teradose 4D [facility]: [employer] RADIATION DOSE: CT Rad equipment meets quality standard of care and radiation dose reduction techniq ues were employed. CTDIvol: 19.2 mGy. DLP: 370 mGy-cm. mGy. LIMITATIONS: None. FINDINGS: ALIGNMENT: Anatomic. MINERALIZATION: Normal. VERTEBRAL BODIES: No fractures or dislocation. DISCS: Multilevel disc space narrowing with osteophytes. FACETS, LATERAL MASSES, POSTERIOR ELEMENTS: Facet arthropathy. No fractures. No dislocation. No ac ariana findings. HARDWARE: None in the spine. VISUALIZED RIBS: No fractures. LUNG APICES AND SOFT TISSUES: No significant or acute findings. OTHER: No other significant finding. IMPRESSION: CHRONIC DEGENERATIVE CHANGES. NO ACUTE FINDINGS. TECHNICAL DOCUMENTATION: JOB ID: [id number] Quality ID # [id number]: Final reports with documentation of one or more dose reduction techniques (e.g., Au tomated exposure control, adjustment of the mA and/or kV according to patient size, use of iterative reconstruction technique) 2010 [employer]- All Rights Reserved
[2017-10-06] MEDS ORDERED: HYDRALAZINE HCL 50 MG TABLET PO ONE ×2 (16:04→21:50)
[2017-10-06] MEDS ORDERED: ISOSORBIDE DINITRATE 20 MG TABLET PO ONE ×2 (16:04→21:50)
--- NOTE | 2017-10-06 17:18 | EKG REPORT ---
SEVERITY:- ABNORMAL ECG - ATRIAL-PACED COMPLEXES PROBABLE LEFT ATRIAL ABNORMALITY NONSPECIFIC INTRAVENTRICULAR CONDUCTION DELAY LEFT VENTRICULAR HYPERTROPHY INFERIOR INFARCT, AGE INDETERMINATE : Confirmed by: Crystal Sousa 06-Oct-2017 17:17:43
[2017-10-06] MEDS ORDERED: NORMAL SALINE 1000 ML 1,000 ML IV PRN (18:14)
[2017-10-06] MEDS ORDERED: APIXABAN 2.5 MG TABLET PO ONE (21:49)
[2017-10-06] MEDS ORDERED: CARVEDILOL 6.25 MG TABLET PO ONE (21:49)
[2017-10-06] MEDS ORDERED: FLUOXETINE HCL 20 MG CAPSULE PO ONE (21:50)
[2017-10-06] MEDS ORDERED: CLONAZEPAM 1 MG TABLET PO ONE (21:50)
[2017-10-06] MEDS ORDERED: ISOSORBIDE DINITRATE 20 MG TABLET ONE (22:18)
[2017-10-07] MEDS ORDERED: MORPHINE SULFATE 10 MG/ML INJ IV ONE (02:58)
--- NOTE | 2017-10-07 04:16 | RADIOLOGY REPORT (SQ) ---
EXAM DESCRIPTION: SACRUM AND COCCYX CLINICAL HISTORY: 67 years, Male, trauma COMPARISON: None. NUMBER OF VIEWS:3 LIMITATIONS: None. FINDINGS: Bones, joints, and soft tissues appear intact. No significant displaced fracture or deformity of the sacrum/coccyx. IMPRESSION: No acute findings. 2011 [employer]- All Rights Reserved
--- NOTE | 2017-10-07 04:18 | RADIOLOGY REPORT (SQ) ---
EXAM DESCRIPTION: ELBOW RIGHT AP/LAT CLINICAL HISTORY: 67 years, Male, trauma COMPARISON: None. NUMBER OF VIEWS:2 LIMITATIONS: None. FINDINGS: 1.2 cm chronically fragmented enthesophyte of the posterior right ulnar olecranon. No evidence of fracture or dislocation. No significant effusion. Antecubital IV catheter. IMPRESSION: No acute findings. 2010 [facility]- All Rights Reserved
[2017-10-07 04:47] VITALS: BP 112/78
--- NOTE | 2017-10-07 09:44 | EKG REPORT ---
SEVERITY:- ABNORMAL ECG - ATRIAL-PACED RHYTHM NONSPECIFIC INTRAVENTRICULAR CONDUCTION DELAY INFERIOR INFARCT, AGE INDETERMINATE : Confirmed by: Crystal Sousa 07-Oct-2017 09:44:01
== END 2017-10-07 04:48 | disposition short-term general hospital (02) ==
LOC: ER 14:07
DX: I47.2 Ventricular tachycardia (principal); I49.3 Ventricular premature depolarization; I12.9 Hypertensive chronic kidney disease with stage 1 through stage 4 chronic kidney disease, or unspecified chronic kidney disease; N18.9 Chronic kidney disease, unspecified; R55 Syncope and collapse; S51.011A Laceration without foreign body of right elbow, initial encounter; M53.3 Sacrococcygeal disorders, not elsewhere classified; M25.521 Pain in right elbow; M25.511 Pain in right shoulder; W17.89XA Other fall from one level to another, initial encounter; Y93.A1 Activity, exercise machines primarily for cardiorespiratory conditioning; Y92.538 Other ambulatory health services establishments as the place of occurrence of the external cause; R07.9 Chest pain, unspecified; I25.10 Atherosclerotic heart disease of native coronary artery without angina pectoris; I25.2 Old myocardial infarction; Z86.711 Personal history of pulmonary embolism; Z86.718 Personal history of other venous thrombosis and embolism; Z95.810 Presence of automatic (implantable) cardiac defibrillator; Z95.5 Presence of coronary angioplasty implant and graft; Z87.891 Personal history of nicotine dependence
CPT/HCPCS: 93005 ×2; 99291; 96361; 96374; 36415; 82962; 83735; 85025; 85610; 85730; 80053; 84484; 71045; 72220; 73070; 70450; 72125; 93010 ×2; A9270 ×5; J2270; J7030

== ENCOUNTER 2017-10-23 17:19 | Emergency (ER) | payer MEDICARE, OTHER ==
--- NOTE | 2017-10-23 18:10 | RADIOLOGY REPORT (SQ) ---
EXAM DESCRIPTION: CHEST SINGLE VIEW COMPLETED DATE/TIME: 10/23/2017 5:59 pm REASON FOR STUDY: CHEST pain COMPARISON: None. EXAM PARAMETERS: NUMBER OF VIEWS: One view. TECHNIQUE: Single frontal radiographic view of the chest acquired. RADIATION DOSE: NA LIMITATIONS: None. FINDINGS: LUNGS AND PLEURA: No opacities, masses or pneumothorax. No pleural effusion. MEDIASTINUM AND HILAR STRUCTURES: No masses. Contour normal. HEART AND VASCULAR STRUCTURES: Heart normal in size. Normal vasculature. BONES: No acute findings. HARDWARE: Left subclavian defibrillator. OTHER: No other significant finding. IMPRESSION: No evidence of acute cardiopulmonary disease. TECHNICAL DOCUMENTATION: JOB ID: [id number] [employer]- All Rights Reserved
[2017-10-23 18:16] LABS: ABSOLUTE BASOPHILS # (AUTO) 0.1 10^3/uL (0.0-0.2); ABSOLUTE EOSINOPHILS # (AUTO) 0.3 10^3/uL (0.0-0.6); ABSOLUTE LYMPHOCYTES (AUTO) 0.7 10^3/uL (0.5-4.7); ABSOLUTE MONOCYTES (AUTO) 0.9 10^3/uL (0.1-1.4); ABSOLUTE NEUT (AUTO) 6.3 10^3/uL (1.7-8.2); BASOPHILS % (AUTO) 0.9 % (0-2); HEMATOCRIT 45.5 % (37.9-51.0); HEMOGLOBIN 15.2 g/dL (13.5-17.0); LYMPHOCYTES % (AUTO) 8.8 % (13-45); MEAN CORPUSCULAR HEMOGLOBIN 31.2 pg (27.0-33.4); MEAN CORPUSCULAR HGB CONC 33.4 g/dL (32.0-36.0); MEAN CORPUSCULAR VOLUME 94 fl (80-97); MONOCYTES % (AUTO) 10.6 % (3-13); PLATELET COUNT 167 10^3/uL (150-450); RED BLOOD COUNT 4.87 10^6/uL (4.35-5.55); RED CELL DISTRIBUTION WIDTH 14.5 % (11.5-14.0); SEGMENTED NEUTROPHILS % (AUTO) 75.7 % (42-78); TOTAL CELLS COUNTED % (AUTO) 100 %; WHITE BLOOD COUNT 8.3 10^3/uL (4.0-10.5)
[2017-10-23 18:35] LABS: ALANINE AMINOTRANSFERASE 92 U/L (21-72); ALBUMIN 3.6 g/dL (3.5-5.0); ALKALINE PHOSPHATASE 108 U/L (38-126); ANION GAP 7 (5-19); ASPARTATE AMINO TRANSFERASE 75 U/L (17-59); BILIRUBIN,DIRECT 0.6 mg/dL (0.0-0.4); BILIRUBIN,TOTAL 0.8 mg/dL (0.2-1.3); BLOOD UREA NITROGEN 33 mg/dL (7-20); CALCIUM 9.2 mg/dL (8.4-10.2); CARBON DIOXIDE 27 mmol/L (22-30); CHLORIDE 108 mmol/L (98-107); CREATINE KINASE 30 U/L (55-170); GLUCOSE 84 mg/dL (75-110); POTASSIUM 4.3 mmol/L (3.6-5.0); SODIUM 141.5 mmol/L (137-145); TOTAL PROTEIN 6.6 g/dL (6.3-8.2)
--- NOTE | 2017-10-23 18:44 | EKG REPORT ---
SEVERITY:- ABNORMAL ECG - ATRIAL-PACED COMPLEXES PROBABLE LEFT ATRIAL ABNORMALITY NONSPECIFIC INTRAVENTRICULAR CONDUCTION DELAY BORDERLINE ST DEPRESSION, LATERAL LEADS : Confirmed by: Papi Beltran MD 23-Oct-2017 18:43:12
[2017-10-23 18:46] LABS: CREATINE KINASE MB 0.28 ng/mL (<4.55)
[2017-10-23 18:47] LABS: TROPONIN I < 0.012 ng/mL
[2017-10-23] MEDS ORDERED: NITROGLYCERIN 0.4 MG/TAB 25 TAB/BOTTLE SL PRN (18:55)
[2017-10-23] MEDS ORDERED: ONDANSETRON HCL INJ/PF 4 MG/2 ML SDV IV ONE (19:53)
[2017-10-23] MEDS ORDERED: MORPHINE SULFATE 10 MG/ML INJ IV ONE ×2 (19:53→20:24)
[2017-10-23] MEDS ORDERED: HYDROCODONE/ACETAMINOPHEN 5-325 MG (6 TAB/ER DISP) PO PRN (22:36)
--- NOTE | 2017-10-23 22:39 | ER Document Report ---
ED General - General Chief Complaint: Chest Pain Stated Complaint: CHEST PAIN Time Seen by Provider: 10/23/17 17:46 TRAVEL OUTSIDE OF THE [place] IN LAST 30 DAYS: No - HPI Patient complains to provider of: Upper chest pain Notes: Patient coming in for evaluation of upper chest pain. Chest pain started at 8: 00 this morning. Patient states all of her chest pain on left and right side. Patient states slight nausea associated with chest pain. Patient states when he was induced last time chest pain was relieved with morphine. Patient denies any fevers chills vomiting diarrhea. Patient does have a history of AICD placement and also ventricular tachycardia with FL. Patient denies any palpitations denies any firing of his AICD. Patient resting comfortably upon my evaluation. Patient states compliant with his home medications but does include Xarelto. - Related Data Allergies/Adverse Reactions: No Known Allergies Allergy (Verified 03/04/14 07:34) Past Medical History - Social History Smoking Status: Never Smoker Family History: CAD, Other - No one has pulmonary emboli or other clotting disorder. Patient has suicidal ideation: No Patient has homicidal ideation: No - Past Medical History Cardiac Medical History: Reports: Hx Coronary Artery Disease, Hx DVT - on warfarin, has checked monthly, no change in meds, Hx Heart Attack - X2., Hx Hypercholesterolemia, Hx Hypertension, Hx Pulmonary Embolism Denies: Hx Atrial Fibrillation, Hx Congestive Heart Failure Pulmonary Medical History: Denies: Hx Tuberculosis Neurological Medical History: Denies: Hx Cerebrovascular Accident Endocrine Medical History: Denies: Hx Diabetes Mellitus Type 1, Hx Diabetes Mellitus Type 2 Renal/ Medical History: Reports: Hx Renal Insufficiency. Denies: Hx Kidney Stones, Hx Peritoneal Dialysis GI Medical History: Reports: Hx Diverticulitis - Recent five-day hospitalization. Has yet to recover his energy level Musculoskeltal Medical History: Reports Hx Arthritis Psychiatric Medical History: Reports: Hx Depression - recent loss of daughter Past Surgical History: Reports: Hx Cardiac Surgery - stent x2, Hx Cholecystectomy - pacemaker/defib, Hx Coronary Stent, Hx Internal Defibrillator - Immunizations Immunizations up to date: Yes Hx Diphtheria, Pertussis, Tetanus Vaccination: Yes Review of Systems - Review of Systems Constitutional: No symptoms reported EENT: No symptoms reported Cardiovascular: Chest pain Respiratory: No symptoms reported Gastrointestinal: No symptoms reported Genitourinary: No symptoms reported Male Genitourinary: No symptoms reported Musculoskeletal: No symptoms reported Skin: No symptoms reported Hematologic/Lymphatic: No symptoms reported Neurological/Psychological: No symptoms reported -: Yes All other systems reviewed and negative Physical Exam - Vital signs Vitals: Resp Pulse Ox 20 96 10/23/17 17:36 10/23/17 17:36 Interpretation: Normal - General General appearance: Appears well, Alert - HEENT Head: Normocephalic, Atraumatic Eyes: Normal Pupils: PERRL - Respiratory Respiratory status: No respiratory distress Chest status: Nontender Breath sounds: Normal Chest palpation: Normal Notes: Pacemaker left upper chest. No signs of any infection nontender to palpation. - Cardiovascular Rhythm: Regular Heart sounds: Normal auscultation Murmur: No - Abdominal Inspection: Normal Distension: No distension Bowel sounds: Normal Tenderness: Nontender Organomegaly: No organomegaly - Back Back: Normal, Nontender - Extremities General upper extremity: Normal inspection, Nontender, Normal color, Normal ROM , Normal temperature General lower extremity: Normal inspection, Nontender, Normal color, Normal ROM , Normal temperature, Normal weight bearing. No: Torie's sign - Neurological Neuro grossly intact: Yes Cognition: Normal Orientation: AAOx4 Danforth Coma Scale Eye Opening: Spontaneous Arnav Coma Scale Verbal: Oriented Arnav Coma Scale Motor: Obeys Commands Danforth Coma Scale Total: 15 Speech: Normal Motor strength normal: LUE, RUE, LLE, RLE Sensory: Normal - Psychological Associated symptoms: Normal affect, Normal mood - Skin Skin Temperature: Warm Skin Moisture: Dry Skin Color: Normal Course - Re-evaluation Re-evalutation: 10/23/17 23:45 Laboratory studies showed 2 negative troponins. Upon reevaluation patient reiterated his pain was relieved with morphine. PatientNitro however no relief his pain therefore patient was given 2 doses of morphine. Upon last evaluation patient sleeping. Did discuss case with Dr. Dorantes of [facility] then agrees with plan to perform 2 troponins is negative discharged home. No EKG changes 2 troponins negative. Patient will be discharged - Vital Signs Vital signs: Temp Pulse Resp BP Pulse Ox 97.6 F 15 123/86 H 92 10/23/17 17:38 10/23/17 22:31 10/23/17 22:31 10/23/17 22:31 - Laboratory Result Diagrams: 10/23/17 17:50 02/01/18 17:50 Laboratory results interpreted by me: 10/23/17 10/23/17 17:50 17:50 RDW 14.5 H Lymphocytes % 8.8 L Chloride 108 H BUN 33 H Creatinine 3.30 H Est GFR ( Amer) 23 L Est GFR (Non-Af Amer) 19 L Direct Bilirubin 0.6 H AST 75 H ALT 92 H Creatine Kinase 30 L Discharge - Discharge Clinical Impression: Upper chest wall pain Condition: Good Disposition: HOME, SELF-CARE Instructions: Chest Wall Pain ([facility]), Chest Pain of Unclear Cause ([facility]) Additional Instructions: Your EKG does not show any acute changes. Your laboratory studies also do not show any signs of ischemia. Chest x-ray was negative. Discussed with Dr. Dorantes of the cardiology recommend following up with your internal medicine nurse practitioner tomorrow give his office a call. He may take the pain medication as prescribed 1 tablet every 6 hours as needed for pain
[2017-10-23 22:44] VITALS: BP 123/86
== END 2017-10-23 22:48 | disposition home or self-care (01) ==
LOC: ER 17:19
DX: R07.89 Other chest pain (principal); I47.2 Ventricular tachycardia; I25.2 Old myocardial infarction; Z79.01 Long term (current) use of anticoagulants
CPT/HCPCS: 93005; 96376; 99285; 96374; 96375; 36415; 82553; 82550; 85025; 80053; 84484; 71045; 93010; J2270; J2405; A9270

== ENCOUNTER 2020-02-13 10:26 | Emergency (ER) | payer MEDICARE, OTHER ==
--- NOTE | 2020-02-13 10:38 | ER Document Report ---
ED Medical Screen (RME) - General Chief Complaint: Chest Pain Stated Complaint: CHEST PAIN Time Seen by Provider: 02/13/20 10:35 Mode of Arrival: Wheelchair Information source: Patient Notes: 69-year-old male with long medical history of to include but is not limited to CHF CAD MO PE presents to the emergency department with complaints of upper abdominal pain mostly on the right side. Patient reports he fell a couple weeks ago and fractured her right rib. Patient reports his abdomen pain started couple days ago. Patient also reports he cannot lay down because it hurts so bad. Patient abdomen tight tender to palpate. Patient reports his abdomen is not usually that tight. Patient has ecchymosis right flank. No complains of fever and vomiting diarrhea. Reports decreased appetite recently. Last bowel movement yesterday. I have greeted and performed a rapid initial assessment of this patient. A comprehensive ED assessment and evaluation of the patient, analysis of test re sults and completion of the medical decision making process will be conducted by additional ED providers. TRAVEL OUTSIDE OF THE [place] IN LAST 30 DAYS: No - Related Data Allergies/Adverse Reactions: No Known Allergies Allergy (Verified 02/13/20 10:31) Past Medical History - Past Medical History Cardiac Medical History: Reports: Hx Coronary Artery Disease, Hx DVT - on warfarin, has checked monthly, no change in meds, Hx Heart Attack - X2., Hx Hypercholesterolemia, Hx Hypertension, Hx Pulmonary Embolism Denies: Hx Atrial Fibrillation, Hx Congestive Heart Failure Pulmonary Medical History: Denies: Hx Tuberculosis Neurological Medical History: Denies: Hx Cerebrovascular Accident Endocrine Medical History: Denies: Hx Diabetes Mellitus Type 1, Hx Diabetes Mellitus Type 2 Renal/ Medical History: Reports: Hx Renal Insufficiency. Denies: Hx Kidney Stones, Hx Peritoneal Dialysis GI Medical History: Reports: Hx Diverticulitis - Recent five-day hospitalization. Has yet to recover his energy level Musculoskeltal Medical History: Reports Hx Arthritis Psychiatric Medical History: Reports: Hx Depression - recent loss of daughter Past Surgical History: Reports: Hx Cardiac Surgery - stent x2, Hx Cholecystectomy - pacemaker/defib, Hx Coronary Stent, Hx Internal Defibrillator - Immunizations Immunizations up to date: Yes Hx Diphtheria, Pertussis, Tetanus Vaccination: Yes
[2020-02-13 11:00] LABS: ABSOLUTE BASOPHILS # (AUTO) 0.1 10^3/uL (0.0-0.2); ABSOLUTE EOSINOPHILS # (AUTO) 0.2 10^3/uL (0.0-0.6); ABSOLUTE LYMPHOCYTES (AUTO) 0.7 10^3/uL (0.5-4.7); ABSOLUTE MONOCYTES (AUTO) 0.5 10^3/uL (0.1-1.4); ABSOLUTE NEUT (AUTO) 3.3 10^3/uL (1.7-8.2); BASOPHILS % (AUTO) 1.5 % (0-2); EOSINOPHILS % (AUTO) 4.1 % (0-6); HEMOGLOBIN 11.3 g/dL (13.5-17.0); LYMPHOCYTES % (AUTO) 14.3 % (13-45); MEAN CORPUSCULAR HEMOGLOBIN 32.3 pg (27.0-33.4); MEAN CORPUSCULAR HGB CONC 33.3 g/dL (32.0-36.0); MEAN CORPUSCULAR VOLUME 97 fl (80-97); MONOCYTES % (AUTO) 11.2 % (3-13); PLATELET COUNT 159 10^3/uL (150-450); RED BLOOD COUNT 3.51 10^6/uL (4.35-5.55); RED CELL DISTRIBUTION WIDTH 15.9 % (11.5-14.0); SEGMENTED NEUTROPHILS % (AUTO) 68.9 % (42-78); TOTAL CELLS COUNTED % (AUTO) 100 %; WHITE BLOOD COUNT 4.8 10^3/uL (4.0-10.5)
[2020-02-13 11:07] LABS: INTERNATIONAL RATION (INR) 1.78
[2020-02-13 11:08] LABS: PARTIAL THROMBOPLASTIN TIME 40.7 SEC (23.5-35.8)
[2020-02-13 11:21] LABS: ALBUMIN 3.1 g/dL (3.5-5.0); ALKALINE PHOSPHATASE 102 U/L (38-126); ANION GAP 6 (5-19); ASPARTATE AMINO TRANSFERASE 18 U/L (17-59); BLOOD UREA NITROGEN 31 mg/dL (7-20); CALCIUM 8.8 mg/dL (8.4-10.2); CARBON DIOXIDE 23 mmol/L (22-30); CHLORIDE 109 mmol/L (98-107); GLUCOSE 103 mg/dL (75-110); POTASSIUM 4.2 mmol/L (3.6-5.0); TOTAL PROTEIN 6.6 g/dL (6.3-8.2)
[2020-02-13] MEDS ORDERED: RINGERS SOLUTION,LACTATED 1,000 ML IV ONE (11:21)
--- NOTE | 2020-02-13 11:21 | ER Document Report ---
ED General - General Chief Complaint: Abdominal Pain Stated Complaint: CHEST PAIN Time Seen by Provider: 02/13/20 10:35 Mode of Arrival: Wheelchair Notes: 69-year-old male who fell while walking on crutches 2-1/2 weeks ago secondary to gout, he hit the right side of his chest against a table, was diagnosed with broken ribs on his right-hand side by orthopedic surgery. States that his pain was starting to improve and then suddenly he developed right upper quadrant pain that is constant, he is unable to take a deep breath, when he tries he has severe pain. Denies fever or cough. Does take blood thinners both Plavix and Eliquis. TRAVEL OUTSIDE OF THE [place] IN LAST 30 DAYS: No - Related Data Allergies/Adverse Reactions: No Known Allergies Allergy (Verified 02/13/20 10:31) Past Medical History - General Information source: Patient - Social History Smoking Status: Never Smoker Chew tobacco use (# tins/day): No Frequency of alcohol use: None Drug Abuse: None Family History: CAD, Other - No one has pulmonary emboli or other clotting disorder. Patient has homicidal ideation: No - Past Medical History Cardiac Medical History: Reports: Hx Coronary Artery Disease, Hx DVT - on warfarin, has checked monthly, no change in meds, Hx Heart Attack - X2., Hx Hypercholesterolemia, Hx Hypertension, Hx Pulmonary Embolism Denies: Hx Atrial Fibrillation, Hx Congestive Heart Failure Pulmonary Medical History: Denies: Hx Tuberculosis Neurological Medical History: Denies: Hx Cerebrovascular Accident Endocrine Medical History: Denies: Hx Diabetes Mellitus Type 1, Hx Diabetes Mellitus Type 2 Renal/ Medical History: Reports: Hx Renal Insufficiency. Denies: Hx Kidney Stones, Hx Peritoneal Dialysis GI Medical History: Reports: Hx Diverticulitis - Recent five-day hospitalization. Has yet to recover his energy level Musculoskeletal Medical History: Reports Hx Arthritis Psychiatric Medical History: Reports: Hx Depression - recent loss of daughter Past Surgical History: Reports: Hx Cardiac Surgery - stent x2, Hx Cholecystectomy - pacemaker/defib, Hx Coronary Stent, Hx Internal Defibrillator - Immunizations Immunizations up to date: Yes Hx Diphtheria, Pertussis, Tetanus Vaccination: Yes Review of Systems - Review of Systems Constitutional: No symptoms reported Cardiovascular: See HPI Respiratory: See HPI Genitourinary: No symptoms reported. denies: Hematuria -: Yes All other systems reviewed and negative Physical Exam - Vital signs Vitals: Temp 98.4 F 02/13/20 10:36 Interpretation: Tachypneic - Notes Notes: GENERAL: Alert, interacts well. No acute distress. HEAD: Normocephalic, atraumatic EYES: Pupils equal, round and reactive to light, extraocular movements intact. ENT: Oral mucosa moist, tongue midline. NECK: Full range of motion, supple, trachea midline. LUNGS: Clear to auscultation bilaterally, no wheezes, rales or rhonchi, no respiratory distress but does appear quite uncomfortable when taking a deep breath. HEART: Regular rate and rhythm, no murmurs, gallops, rubs. ABDOMEN: Old bruising on right flank, abdomen moderately distended, tender to palpation across lower ribs and right upper quadrant, guarding, no rigidity or rebounding, bowel sounds present in all 4 quadrants. EXTREMITIES: Moves all 4 extremities spontaneously, no edema, radial and dorsalis pedis pulses 2/4 bilaterally. No cyanosis. NEUROLOGICAL: Alert and oriented x3, normal speech. PSYCH: Normal mood, normal affect. SKIN: Warm, Dry, normal turgor. Course - Re-evaluation Re-evalutation: 02/13/20 11:21 Immediately after my examination patient was sent for CT scan of the abdomen pelvis with IV contrast without waiting on renal function as I am quite concerned for the possibility of a ruptured hepatic hematoma given his history of fall, abdominal pain, abdominal distention and bruising. Patient was made aware of the risk of worsening renal failure when receiving IV dye. 02/13/20 12:21 [id number] called and stated he said as soon as these symptoms started he told her this feels exactly like the pain he had with his last PE, even though he had denied this to me. Patient is already using an incentive spirometer to prevent pneumonia after his fall. I will get a VQ scan based off of this history 02/13/20 17:20 02/13/20 17:21 CBC shows anemia with hemoglobin 11.3, last hemoglobin is from a year and a half ago and was 15.2. Platelets are normal, INR prolonged at 1.78, chemistries show elevated BUN/creatinine at 31 and 2.94 respectively, he has been at this level in the past, again the last blood work that we have is from October 2017, lipase normal, urinalysis shows moderate blood. CT scan of the abdomen pelvis does not show any damage to the liver however it does show multiple large renal cysts and some of the ones on the right-hand side appears somewhat complex and do have fluid going into them. My concern at this time is that 1 of the cyst may have ruptured and that he is having blood going into his urine and this is what is causing the pain. Urinalysis does confirm microscopic hematuria, there is no gross hematuria. This amount of blood loss is not life-threatening. I did discuss with the patient and his [id number] Dorene that I would like to try and treat his pain with a very low dose hydrocodone as he has had a bad reaction to even as much as 2.5 mg at a time in the past. I would also like to use a Lidoderm patch. Patient should also have his hemoglobin and kidney function rechecked in approximately 1 week. If he develops gross hematuria before then he should have it checked before then. Patient does have a follow- up appointment coming up with his com writer, transmitter engineer in charge and primary care physician at [facility] in the first week of February. [id number] will call and discuss with them whether they would like the labs performed before they see this patient. - Vital Signs Vital signs: Temp Pulse Resp BP Pulse Ox 98.4 F 17 138/88 H 95 02/13/20 10:36 02/13/20 17:01 02/13/20 17:01 02/13/20 17:01 - Laboratory Result Diagrams: 02/13/20 10:50 02/13/20 10:50 Laboratory results interpreted by me: 02/13/20 02/13/20 02/13/20 10:50 10:50 10:50 RBC 3.51 L Hgb 11.3 L Hct 34.0 L RDW 15.9 H PT 21.0 H APTT 40.7 H Chloride 109 H BUN 31 H Creatinine 2.94 H Est GFR ( Amer) 26 L Est GFR (MDRD) Non-Af 21 L Albumin 3.1 L Urine Blood 02/13/20 13:53 RBC Hgb Hct RDW PT APTT Chloride BUN Creatinine Est GFR ( Amer) Est GFR (MDRD) Non-Af Albumin Urine Blood MODERATE H - EKG Interpretation by Me Additional EKG results interpreted by me: 02/13/20 11:21 EKG shows sinus rhythm at a rate of 74, interventricular conduction delay, no ST segment elevations or depressions, left axis deviation, T wave inversions in lead III and aVF, V6 with T wave flattening in V5, 1 PVC per my interpretation. Discharge - Discharge Clinical Impression: Ruptured cyst of kidney, Microscopic hematuria, Acute right flank pain Condition: Stable Disposition: HOME, SELF-CARE Additional Instructions: Today you appear to have a ruptured renal cyst on the right-hand side. This is likely what is causing your pain. It is causing some blood to be seen under the microscope in your urine. I would like to have your hemoglobin repeated in approximately 1 week and have your kidney function rechecked in 1 week as well. If you become dizzy, your pain worsens or you start seeing a large amount of blood in your urine I would like you to return to the emergency department. I have prescribed 2 medications to help take care of your pain. 1 of them is a Lidoderm patch. This is topical numbing medication that will go over the most painful area. Please leave it on for 12 hours and then take it off for 12 hours. If you do not feel like the patch we put on today made a difference you do not need to fill this prescription as an outpatient. The next medication that I have prescribed is a liquid version of the Yale that you were taking. Prescriptions: Hydrocodone/Acetaminophen [Hydrocodone-Acetamin 5-217/10] 2 ml PO Q2HP PRN #60 solution PRN Reason: Lidocaine [Lidoderm 5% (700 mg) Transdermal Patch] 1 patch TP DAILY #14 adh..patch
[2020-02-13] MEDS ORDERED: HYDROMORPHONE HCL INJ/PF 2 MG/ML AMPULE IV ONE ×2 (11:22→14:52)
--- NOTE | 2020-02-13 11:30 | RADIOLOGY REPORT (SQ) ---
EXAM DESCRIPTION: CHEST SINGLE VIEW IMAGES COMPLETED DATE/TIME: 02/13/2020 10:58 am REASON FOR STUDY: unable to lay flat, hx chf COMPARISON: 03/07/2014 NUMBER OF VIEWS: One view. TECHNIQUE: Single frontal radiographic view of the chest acquired. LIMITATIONS: None. FINDINGS: LUNGS AND PLEURA: Low lung volumes. No opacities, masses or pneumothorax. No pleural eff usion. MEDIASTINUM AND HILAR STRUCTURES: No masses. No contour abnormality. HEART AND VASCULAR STRUCTURES: Normal size. No evidence for failure. BONES: No acute findings. HARDWARE: Left transvenous pacer with 2 leads grossly intact. OTHER: No other significant finding. IMPRESSION: LOW LUNG VOLUMES. NO SIGNIFICANT RADIOGRAPHIC FINDING IN THE CHEST. TECHNICAL DOCUMENTATION: JOB ID: [id number] 2010 [employer]- All Rights Reserved Reading location - IP/workstation name: [email or web address]
--- NOTE | 2020-02-13 11:52 | RADIOLOGY REPORT (SQ) ---
EXAM DESCRIPTION: CT ABD/PELVIS WITH IV ONLY IMAGES COMPLETED DATE/TIME: 02/13/2020 11:38 am REASON FOR STUDY: fell, hit ribs, extensive upper abd bruising COMPARISON: None. TECHNIQUE: CT scan of the abdomen and pelvis performed using helical scanning technique with dynamic intravenous contrast injection. No oral contrast. Images reviewed with lung, soft tissue, and bone windows. Reconstructed coronal and sagittal MPR images reviewed. Delayed images for evaluation of the urinary system also acquired. All images stored on PACS. All CT scanners at this facility use dose modulation, iterative reconstruction, and/or weight based d osing when appropriate to reduce radiation dose to as low as reasonably achievable (ALARA). [facility]: Dose Right [facility]: CareDose [facility]: Dose Right [facility]: Teradose 4D [facility]: Zenfolio CONTRAST TYPE AND DOSE: Not provided. RENAL FUNCTION: Not provided. RADIATION DOSE: CT Rad equipment meets quality standard of care and radiation dose reduction techniq ues were employed. CTDIvol: 9.3 - 12.7 mGy. DLP: 1225 mGy-cm.. LIMITATIONS: None. FINDINGS: LOWER CHEST: No basilar pneumothorax. Trace pleural fluid. No large effusion. Small per icardial effusion. LIVER: Scattered cysts. SPLEEN: Normal size. No focal lesions. PANCREAS: No masses. No significant calcifications. No adjacent inflammation or peripancreatic fluid collections. Pancreatic duct not dilated. GALLBLADDER: Not seen. ADRENAL GLANDS: No significant masses or asymmetry. RIGHT KIDNEY AND URETER: Markedly enlarged. Diffuse polycystic appearance. Including cysts, over 25 cm craniocaudal. Largest posterior cysts contain some mild internal complexity. LEFT KIDNEY AND URETER: Similar findings to the right kidney. Diffuse loss of parenchyma, replaced w ith numerous sized cysts. Minimal complicating calcification in the lowest cyst. AORTA AND VESSELS: No aneurysm. No dissection. Renal arteries, SMA, celiac without stenosis. RETROPERITONEUM: No retroperitoneal adenopathy, hemorrhage or masses. BOWEL AND PERITONEAL CAVITY: No overt mechanical bowel obstruction, ascites or free air. Sigmoid div erticulosis without active diverticulitis. APPENDIX: Normal. PELVIS: No mass. No free fluid. Normal bladder. ABDOMINAL WALL: No masses. No hernias. BONES: Osteopenic. L1 compression fracture, probably chronic. No displaced rib fractures detected. OTHER: No other significant finding. IMPRESSION: 1. Extensive bilateral enlarged polycystic kidneys. 2. No evidence of acute fracture or acute abdominal abnormality otherwise. TECHNICAL DOCUMENTATION: JOB ID: [id number] Quality ID # [id number]: Final reports with documentation of one or more dose reduction techniques (e.g., Au tomated exposure control, adjustment of the mA and/or kV according to patient size, use of iterative reconstruction technique) 2010 [employer]- All Rights Reserved Reading location - IP/workstation name: [email or web address]
--- NOTE | 2020-02-13 12:19 | EKG REPORT ---
SEVERITY:- ABNORMAL ECG - SINUS RHYTHM NONSPECIFIC INTRAVENTRICULAR CONDUCTION DELAY PROBABLE INFERIOR INFARCT, AGE INDETERMINATE : Confirmed by: Gertrude Palacios MD 13-Feb-2020 12:18:25
[2020-02-13 14:01] LABS: APPEARANCE,URINE CLEAR; BILIRUBIN,URINE NEGATIVE (NEGATIVE); COLOR,URINE YELLOW; GLUCOSE, URINE NEGATIVE (NEGATIVE); KETONES,URINE NEGATIVE (NEGATIVE); LEUKOCYTE ESTERASE,URINE NEGATIVE (NEGATIVE); NITRITE,URINE NEGATIVE (NEGATIVE); PROTEIN,URINE NEGATIVE (NEGATIVE); URINE SPECIFIC GRAVITY 1.024; UROBILINOGEN,URINE NEGATIVE mg/dL (<2.0)
[2020-02-13] MEDS ORDERED: LIDOCAINE 5% (700 MG) TRANSDERMAL ADH..PATCH TP ONE (14:51)
--- NOTE | 2020-02-13 16:11 | RADIOLOGY REPORT (SQ) ---
EXAM DESCRIPTION: NM LUNG PERFUSION SCAN IMAGES COMPLETED DATE/TIME: 02/13/2020 4:00 pm REASON FOR STUDY: h/o PE, pleuritic chest pain COMPARISON: Chest x-ray dated 02/13/2020. Prior lung scan dated 03/09/2011. RADIONUCLIDE AND DOSE: 5.19 millicuries TC-99m MAA The route of agent administration: Intravenous TECHNIQUE: Eight views of the lungs acquired following injection of MAA. LIMITATIONS: None. FINDINGS: PERFUSION: Perfusion images with normal homogenous activity and no wedge-shaped or segment al defects. OTHER: No other significant finding. IMPRESSION: NORMAL PERFUSION LUNG SCAN. TECHNICAL DOCUMENTATION: JOB ID: [id number] 2010 [employer]- All Rights Reserved Reading location - IP/workstation name: [email or web address]
[2020-02-13 18:31] VITALS: BP 147/95
== END 2020-02-13 18:30 | disposition home or self-care (01) ==
LOC: ER 10:26
DX: N28.1 Cyst of kidney, acquired (principal); R31.29 Other microscopic hematuria; R10.9 Unspecified abdominal pain; R07.9 Chest pain, unspecified; R10.11 Right upper quadrant pain; I25.10 Atherosclerotic heart disease of native coronary artery without angina pectoris; Z86.718 Personal history of other venous thrombosis and embolism; Z79.01 Long term (current) use of anticoagulants; I25.2 Old myocardial infarction; I10 Essential (primary) hypertension; Z86.711 Personal history of pulmonary embolism
CPT/HCPCS: 93005; 96376; 99284; 96361; 96374; 36415; 83690; 85025; 85610; 85730; 80053; 81001; 71045; 78580; 74177; 93010; A9540; J1170; A9270; J7120; Q9969